=== PATIENT | male | born 1985 | race Caucasian/White ===

== ENCOUNTER 2021-08-19 13:00 | Emergency (ER) | payer BC ==
[2021-08-19] MEDS ORDERED: Ondansetron 4 MG/2 ML SDV IVPUSH ONE (13:20)
[2021-08-19] MEDS ORDERED: Sodium Chloride 0.9% 1,000 ML IV STA (13:20)
[2021-08-19] MEDS ORDERED: HYDROmorphone 0.5 MG/0.5 ML Syringe IVPUSH ONE ×2 (13:20→13:38)
--- NOTE | 2021-08-19 13:40 | EDM.PDOC ---
ED HPI GENERAL MEDICAL PROBLEM - General Chief Complaint: Flank Pain Stated Complaint: SENT FROM [facility]\ [facility] Time Seen by Provider: 08/19/21 13:16 Source of Information: Reports: Patient, RN Notes Reviewed History Limitations: Reports: No Limitations - History of Present Illness INITIAL COMMENTS - FREE TEXT/NARRATIVE: Patient is a 35-year-old male presenting to the emergency department with acute onset of left flank pain approximate 45 minutes prior to arrival. He describes a sharp stabbing pain in his left flank which radiates to his left abdomen. He went to the [place] [facility] prior to coming here, however they were unable to control his pain, therefore he came over here. They did do blood work and urine, however he is unsure the results as he left too soon. He has not taken any [id number] medications for treatment. Denies any history of kidney stones or obvious blood in his urine. Prior to 45 minutes ago, he was feeling well. Left Flank Pain Score (Numeric/FACES): 8 - Related Data Allergies Allergy/AdvReac Type Severity Reaction Status Date / Time No Known Allergies Allergy Verified 08/19/21 13:17 Home Meds: Home Meds Hydrocodone/Acetaminophen [Hydrocodone-Acetamin 5-325 mg] 1 each PO Q4H PRN #12 tablet 08/19/21 [Rx] Montelukast Sodium [Singulair] 1 tab PO DAILY 08/19/21 [History] Past Medical History - Past Surgical History Male Surgical History: Reports: Other (See Below) Other Male Surgeries/Procedures: Varicose Vein Surgery on testicle Social & Family History - Tobacco Use Tobacco Use Status *Q: Never Tobacco User - Caffeine Use Caffeine Use: Reports: Coffee - Recreational Drug Use Recreational Drug Use: No ED ROS GENERAL - Review of Systems Review Of Systems: Comprehensive ROS is negative, except as noted in HPI. ED EXAM, RENAL/ - Physical Exam Exam: See Below Exam Limited By: No Limitations General Appearance: Alert, Moderate Distress Respiratory/Chest: No Respiratory Distress, Lungs Clear, Normal Breath Sounds, No Accessory Muscle Use, Chest Non-Tender Cardiovascular: Normal Peripheral Pulses, Regular Rate, Rhythm, No Edema, No Gallop, No JVD, No Murmur, No Rub GI/Abdominal: Normal Bowel Sounds, Soft, No Organomegaly, No Distention, No Abnormal Bruit, No Mass, Tender (Left lateral and left lower quadrant). No: Guarding, Rigid, Rebound Back Exam: Normal Inspection, CVA Tenderness (L). No: CVA Tenderness (R) Neurological: Alert, Oriented, Normal Cognition, Normal Gait, No Motor/Sensory Deficits Psychiatric: Normal Affect, Normal Mood Skin Exam: Warm, Dry, Intact, Normal Color, No Rash Course - Vital Signs Last Recorded V/S: Last Vital Signs Temp 97.6 F 08/19/21 13:15 Pulse 72 08/19/21 13:15 Resp 16 08/19/21 13:15 BP 136/99 H 08/19/21 13:15 Pulse Ox 100 08/19/21 13:15 - Orders/Labs/Meds Labs: Laboratory Tests 08/19/21 08/19/21 08/19/21 Range/Units 13:35 13:35 14:56 WBC 10.86 H (4.23-9.07) K/mm3 RBC 4.87 (4.63-6.08) M/mm3 Hgb 15.1 (13.7-17.5) gm/dl Hct 42.1 (40.1-51.0) % MCV 86.4 (79.0-92.2) fl MCH 31.0 (25.7-32.2) pg MCHC 35.9 H (32.2-35.5) g/dl RDW Std Deviation 40.6 (35.1-43.9) fL Plt Count 228 (163-337) K/mm3 MPV 11.1 (9.4-12.3) fl Neut % (Auto) 75.9 H (34.0-67.9) % Lymph % (Auto) 15.2 L (21.8-53.1) % Ray % (Auto) 7.1 (5.3-12.2) % Eos % (Auto) 1.1 (0.8-7.0) Baso % (Auto) 0.5 (0.1-1.2) % Neut # (Auto) 8.25 H (1.78-5.38) K/mm3 Lymph # (Auto) 1.65 (1.32-3.57) K/mm3 Ray # (Auto) 0.77 (0.30-0.82) K/mm3 Eos # (Auto) 0.12 (0.04-0.54) K/mm3 Baso # (Auto) 0.05 (0.01-0.08) K/mm3 Sodium 140 (136-145) mEq/L Potassium 3.5 (3.5-5.1) mEq/L Chloride 103 (98-107) mEq/L Carbon Dioxide 21 (21-32) mEq/L Anion Gap 19.5 H (5-15) BUN 21 H (7-18) mg/dL Creatinine 1.5 H (0.7-1.3) mg/dL Est Cr Clr Drug Dosing 65.23 mL/min Estimated GFR (MDRD) 53 (>60) mL/min BUN/Creatinine Ratio 14.0 (14-18) Glucose 129 H (70-99) mg/dL Calcium 9.6 (8.5-10.1) mg/dL Total Bilirubin 0.4 (0.2-1.0) mg/dL AST 17 (15-37) U/L ALT 35 (16-63) U/L Alkaline Phosphatase 78 (46-116) U/L Total Protein 7.5 (6.4-8.2) g/dl Albumin 4.3 (3.4-5.0) g/dl Globulin 3.2 gm/dL Albumin/Globulin Ratio 1.3 (1-2) Urine Color Yellow (Yellow) Urine Appearance Clear (Clear) Urine pH 8.5 H (5.0-8.0) Ur Specific [place] 1.015 (1.005-1.030) Urine Protein 2+ H (Negative) Urine Glucose (UA) Negative (Negative) Urine Ketones 2+ H (Negative) Urine Occult Blood Negative (Negative) Urine Nitrite Negative (Negative) Urine Bilirubin Negative (Negative) Urine Urobilinogen 0.2 (0.2-1.0) Ur Leukocyte Esterase Negative (Negative) Urine RBC 0-5 (0-5) /hpf Urine WBC 0-5 (0-5) /hpf Ur Squamous Epith Cells 0-5 (0-5) /hpf Amorphous Sediment Moderate H (NOT SEEN) /hpf Urine Bacteria Few (FEW) /hpf Urine Mucus Not seen (FEW) /hpf Meds: Medications Discontinued Medications Generic Name Dose Route Start Last Admin Trade Name Freq PRN Reason Stop Dose Admin Hydromorphone HCl 0.5 mg 08/19/21 13:20 08/19/21 13:31 Hydromorphone 0.5 Mg/0.5 Ml Syringe IVPUSH 08/19/21 13:21 0.5 mg ONETIME ONE Administration Hydromorphone HCl 0.5 mg 08/19/21 13:38 08/19/21 13:43 Hydromorphone 0.5 Mg/0.5 Ml Syringe IVPUSH 08/19/21 13:39 0.5 mg ONETIME ONE Administration Sodium Chloride 1,000 mls @ 150 mls/hr 08/19/21 13:20 08/19/21 13:31 Normal Saline IV 08/19/21 19:59 150 mls/hr NOW STA Administration Ketorolac Tromethamine 30 mg 08/19/21 14:34 08/19/21 14:46 Ketorolac 30 Mg/Ml Sdv IVPUSH 08/19/21 14:35 30 mg ONETIME ONE Administration Ondansetron HCl 4 mg 08/19/21 13:20 08/19/21 13:31 Ondansetron 4 Mg/2 Ml Sdv IVPUSH 08/19/21 13:21 4 mg ONETIME ONE Administration - Re-Assessments/Exams Free Text/Narrative Re-Assessment/Exam: Patient is a 35-year-old male presenting to the emergency department with complaints of acute onset of left flank pain approximate 45 minutes prior to coming arrival. He has had no vomiting but does feel nauseous. Denies any visible blood in his urine plan on exam, he has significant left-sided CVA tenderness as well as mild left lateral left lower quadrant abdominal tenderness. Presentation is suspicious for kidney stone. I have ordered blood work, urinalysis, CT scan of the abdomen pelvis with contrast. Will give IV fluids of normal saline, Zofran, and Dilaudid for pain. 08/19/21 15:42 Hematology significant for WBC minimally elevated 10.86, and a gap 19.5, BUN 21, creatinine 1.5. Urinalysis is unremarkable. CT scan of the abdomen pelvis showed a 1 mm stone in his bladder as well as dilatation of the left ureter and hydronephrosis indicating that he likely cleared the stone recently. Patient's pain is significantly improved after Dilaudid and Toradol. Results discussed with him. We will discharge him home with a short prescription for hydrocodone with Tylenol. Pain should continue to improve. Discussed return precautions. Discharge instructions as documented. Departure - Departure Time of Disposition: 15:45 Disposition: Home, Self-Care 01 Condition: Good Clinical Impression: Kidney stone on left side - Discharge Information *PRESCRIPTION DRUG MONITORING PROGRAM REVIEWED*: Yes *COPY OF PRESCRIPTION DRUG MONITORING REPORT IN PATIENT JULIO: No Prescriptions: Hydrocodone/Acetaminophen [Hydrocodone-Acetamin 5-325 mg] 1 each PO Q4H PRN #12 tablet PRN Reason: Pain Instructions: Kidney Stones Referrals: Marlon Mohan MD [Primary Care Provider] - Forms: ED Department Discharge Additional Instructions: Take ibuprofen routinely until pain has resolved. You may take your next dose at 9 PM this evening. For pain not relieved by ibuprofen, use the hydrocodone with Tylenol only as prescribed. Do not work or drive for 12 hours after taking this as it can be sedating. If pain fails to resolve over the next few days, recommend follow-up in the clinic. Return to ER for any new or worsening symptoms. Sepsis Event Note (ED) - Evaluation Sepsis Screening Result: No Definite Risk - Focused Exam Vital Signs: Vital Signs Temp Pulse Resp BP Pulse Ox 08/19/21 13:15 97.6 F 72 16 136/99 H 100
--- NOTE | 2021-08-19 14:25 | CT ---
CT abdomen and pelvis Technique: Multiple axial sections were obtained from above the dome of the diaphragm inferiorly through the pubic symphysis. Intravenous and oral contrast were not utilized. Study has been performed as a ureteral stone protocol. Reconstructed coronal and sagittal images were obtained. Comparison: No prior CT abdomen or pelvis study is available. Findings: Small nonobstructing calculus is seen within the left kidney measuring 4.6 mm. No additional calcifications are seen within the kidneys. Left ureter is prominent in size. There is a very minimal calcification suggested within the left side of the bladder measuring about 1 mm. Difficult to exclude a small stone that has passed into the bladder. Please correlate that the patient's symptoms have improved. No other ureteral calculi are seen. Visualized lung bases show nothing acute. Liver contains no focal parenchymal abnormality. Gallbladder contains no calcified gallstones. Spleen size is normal. Adrenal glands show no nodule. Pancreas appears within normal limits. Abdominal aorta shows no aneurysm. No retroperitoneal adenopathy is seen. No mesenteric abnormalities are seen. Appendix is not definitely visualized. No pelvic mass or adenopathy is seen. Bone window settings were reviewed. Air-filled cyst is noted within the left ilium next to the sacroiliac joint measuring 1.6 cm. No acute osseous abnormality is seen. Impression: 1. Small nonobstructing stone within the left kidney. Left ureter is dilated down to the bladder. 1 mm calcification is seen within the bladder. Please correlate that the patient's symptoms have improved for this to represent a passed ureteral stone. 2. Small air-filled cyst within the left ilium next to the sacroiliac joint believed to be benign. Diagnostic code #2
[2021-08-19] MEDS ORDERED: Ketorolac 30 MG/ML SDV IVPUSH ONE (14:34)
== END 2021-08-19 16:01 | disposition home or self-care (01) ==
LOC: JD.ED 13:00
DX: N20.0 Calculus of kidney (principal)
CPT/HCPCS: 36415; 74176; 80053; 81001; 85025; 96374; 96375; 99284; J1170; J1885; J2405; J7030

== ENCOUNTER 2024-11-12 19:47 | Emergency (ER) | payer BC ==
[2024-11-12] MEDS: Ketorolac 60 MG/2 ML SDV IM ONE (20:28)
[2024-11-12] MEDS: Acetaminophen 325 MG Tab PO ONE (20:30)
[2024-11-12] MEDS: Lidocaine 2% 20 ML MDV ONE (20:33)
[2024-11-12] MEDS: Bupivacaine 0.5% 10 ML SDV INJECT ONE (20:33)
[2024-11-12] MEDS: Lidocaine 2% 5 ML SDV INJECT ONE (20:35)
== END 2024-11-12 21:21 | disposition home or self-care (01) ==
LOC: JD.ED 19:47
DX: G44.209 Tension-type headache, unspecified, not intractable (principal); M62.838 Other muscle spasm; Z79.899 Other long term (current) drug therapy
CPT/HCPCS: 20552; 96372; 99283; A9270; J0665; J1885; J2003